=== PATIENT | male | born 1965 | race Caucasian/White ===

== ENCOUNTER 2025-07-26 03:33 | Emergency (ER) | payer SELFPAY ==
[~2025-07-26] VITALS: Ht 170.2 cm; Wt 89.0 kg
[2025-07-26 03:41] VITALS: TEMP 36.6; O2SAT 98
[2025-07-26] MEDS ORDERED: BO1 TP (05:06)
[2025-07-26] MEDS: TETANUS, DIPHTHERIA, PERTUSSIS VAC/PF 0.5ML (>10YR OLD) IM ONE (05:24)
[2025-07-26] MEDS: BACITRACIN ZINC OINT UDPKT TOP ONE (05:24)
[2025-07-26] MEDS: LIDOCAINE HCL 1% 20ML VIAL INFIL ONE (05:29)
[2025-07-26 06:08] VITALS: BP 167/91; PULSE 68; RESP 16; O2SAT 99
== END 2025-07-26 06:10 | disposition home or self-care (01) ==
LOC: ER 03:33
DX: S91.312A Laceration without foreign body, left foot, initial encounter (principal); I10 Essential (primary) hypertension; W18.30XA Fall on same level, unspecified, initial encounter; Y93.89 Activity, other specified; Y92.89 Other specified places as the place of occurrence of the external cause; Y99.8 Other external cause status
CPT/HCPCS: 99283; 73630; 90715; 12002; 90471; J2003